=== PATIENT | female | born 1965 | race Caucasian/White ===

== ENCOUNTER → 2020-05-05 13:48 | Outpatient (CLI) | payer BC, SELFPAY ==
--- NOTE | ~2020-05-05 | DEXA_ITS ---
Bone Density Report Name: Pennie Sweet Age: 54 Sex: Female Ethnicity: White Date of : 1965 Indication: postmenopausal; screening for osteoporosis; hysterectomy; Referring Provider: MORALES, NOHEMI Study: Bone densitometry was performed. Exam Date: May 05, 2020 Accession number: [id number] Bone Density: Region BMD T-score Z-score Classification AP Spine (L1-L4) 0.817 -2.1 -1.0 Osteopenia Femoral Neck (Left) 0.691 -1.4 -0.3 Osteopenia Total Hip (Left) 0.840 -0.8 -0.1 Normal Femoral Neck (Right) 0.740 -1.0 0.1 Normal Total Hip (Right) 0.804 -1.1 -0.4 Osteopenia Total Hip Mean 0.822 -1.0 -0.3 Normal World Health Organization criteria for BMD impression classify patients as: Normal (T-score at or above -1.0), Osteopenia (T-score between -1.0 and -2.5), or Osteoporosis (T-score at or below -2.5). 10-year Fracture Risk(1): Major Osteoporotic Fracture 6.0% Hip Fracture 0.4% Reported Risk Factors: [place] (), Neck BMD=0.691, BMI=38.3 (1) FRAX(R) Version 3.08. Fracture probability calculated for an untreated patient. Fracture probability may be lower if the patient has received treatment. Clinical Information Provided by Patient: Has used the following medications: Vitamin D Has the following medical conditions: Hysterectomy Patient maximum height was 62.6 Menopause Age: 28 No regular weight bearing exercise Does not regularly consume dairy products Drinks caffeinated beverages Onset of menses at age 12 Number of children 3 Impression: The patient has low bone mass, based on the Total Spine T-score. The patient has an estimated ten-year risk of hip fracture of 0.4% and an estimated ten-year risk of major fracture of 6%, based on the WHO FRAX algorithm. Discussion: BONE DENSITY IS LOW AT ONE OR MORE SKELETAL SITES. This patient's lowest T-score is low at one or more skeletal sites. It meets the World Health Organization's (WHO) criteria for ?low bone mass? (T-score between -1.0 and -2.5). The patient's 10-year risk of fracture as calculated by FRAX is less than the threshold where pharmacological therapy is recommended by the National Osteoporosis Foundation (NOF). However, all treatment decisions require clinical judgment and consideration of individual patient factors, including patient preferences, comorbidities, previous drug use, risk factors not captured in the FRAX model (e.g., frailty, falls, vitamin D deficiency, increased bone turnover, interval significant decline in bone density) and possible under or overestimation of fracture risk by FRAX. The patient should follow a healthful lifestyle (good nutrition with adequate calcium and vitamin D, and appropriate weight-bearing exercise). Follow-Up: Consider repeating this study in 2 to 3 years to reassess this patient's st
--- NOTE | ~2020-05-05 | MM_ITS ---
EXAMINATION: MM screening lisa BI w leeanna HISTORY: Screening TECHNIQUE: Craniocaudal and mediolateral oblique 3-D tomosynthesis images were obtained and synthetic 2-D images were generated. CAD analysis was submitted and interpreted. COMPARISON: No prior mammogram is available for comparison at this institution. BREAST PARENCHYMAL COMPOSITION: There are scattered areas of fibroglandular density. FINDINGS: There is no evidence of suspicious mass, calcification, or architectural distortion to sugg est malignancy in either breast. There has been no suspicious interval change. IMPRESSION: 1. No mammographic evidence of malignancy. 2. Recommend routine screening mammography in one year. BI-RADS Category 1: Negative Reviewed, dictated and finalized at location B. [employer]
== END ==
PROVIDERS: PCP Nurse Practitioner Adult Health; Visit Provider Nurse Practitioner Adult Health
DX: Z12.31 Encounter for screening mammogram for malignant neoplasm of breast (principal); Z78.0 Asymptomatic menopausal state; M85.88 Other specified disorders of bone density and structure, other site; M85.852 Other specified disorders of bone density and structure, left thigh; M85.851 Other specified disorders of bone density and structure, right thigh
CPT/HCPCS: 77063; 77067; 77080

== ENCOUNTER 2024-09-05 20:08 | Emergency (ER) | payer OTHER, SELFPAY ==
--- NOTE | ~2024-09-05 | XR_ITS ---
XR ribs LT 2V Ordering provider: Tc Yoon MD History: . Fell 2 days ago . Comparison: None. FINDINGS: BONES: No acute left rib fracture or fracture of the visualized osseous structures. LEFT LUNG: No effusions or infiltrates. No pneumothorax. SOFT TISSUES: Normal. IMPRESSION: No left rib fracture. (Note: subtle/nondisplaced rib fractures can be occult on plain films and if t here is continued clinical suspicion for rib fracture, recommend follow up CT chest.) Reviewed, dictated and finalized at location A. IMPRESSION: No left rib fracture. (Note: subtle/nondisplaced rib fractures can be occult o n plain films and if there is continued clinical suspicion for rib fracture, re commend follow up CT chest.)
--- OUTSIDE RECORDS SUMMARY | 2024-09-05 20:10 | XMS_ITS | Referral Summary ---
Author Organization [facility] Address [address] [place] [address] Care Team Providers Care School Based Therapist Name Role Phone Sarai Fernandez NP Primary Care Provider [phone] Encounters Date Type Department Care Team Description 08/28/2024 Telephone [facility] Dermatology [address] [place] [phone] Jovanna Madden 06/20/2024 Results Follow-Up [facility] Diabetes and Endocrinology [address] [place] [phone] Kristin Gonzalez NP T4, free, TSH, Lipid panel, Additional followed-up results: 2 06/19/2024 10:37 AM CDT - 06/19/2024 11:59 PM CDT Hospital Encounter [address] [address] Postablative hypothyroidism; Mixed hyperlipidemia; Primary hypertension Discharge Disposition: Discharge to home or self care 06/19/2024 10:30 AM CDT Lab [facility] Outpatient Lab at [address] [phone] Mixed hyperlipidemia (Primary Dx) 06/19/2024 10:00 AM CDT Office Visit [facility] Diabetes and Endocrinology [address] [place] [phone] Kristin Gonzalez NP Postablative hypothyroidism (Primary Dx); Prediabetes; Vitamin D deficiency; Primary hypertension; Mixed hyperlipidemia from Last 3 Months Allergies Active Allergy Reactions Criticality Noted Date Comments Sulfa (Sulfonamide Antibiotics) Rash,Fever Medium 10/25 Medications lisinopril-hydroCHL OROthiazide (ZESTORETIC) 20-12.5 mg per tablet Take 1 tablet by mouth daily 1 Active rosuvastatin (CRESTOR) 20 mg tablet Take 1 tablet (20 mg total) by mouth daily 90 tablet 2 3 Active ergocalciferol (VITAMIN D) 50,000 unit capsuleIndications: Postablative hypothyroidism Take 1 capsule (50,000 Units total) by mouth every 7 days 12 capsule 3 4 Active levothyroxine (SYNTHROID) 150 mcg tabletIndications:P ostablative hypothyroidism Take 1 tablet (150 mcg total) by mouth daily 90 tablet 3 4 11/16/19 25 Active Active Problems Problem Noted Date Diagnosed Date Mixed hyperlipidemia 02/06/2023 Assessment & Plan (06/19/2024 10:29 AM CDT): Chronic problem. Currently w/o PCP. Not taking her Rosuvastatin 20mg daily. Thinks she may take weekly. Reviewed risk of stroke w/HLD & uncontrolled HTN. Will update lipid today. Does not mychart. Verified phone #/address to contact re: results. Assessment & Plan (02/06/2023 11:06 AM NATURE PHOTOGRAPHER): Chronic problem. Currently w/o PCP. Rosuvastatin 20mg started 08/2022. Has not had levels repeated. Will update lipid today. Does not mychart. Verified phone #/address to contact re: results. Primary hypertension 01/31/2022 Assessment & Plan (06/19/2024 10:31 AM CDT): Chronic problem, uncontrolled. Only takes antihypertensives maybe weekly. Stressed need to take cholesterol/BP meds weekly. Reviewed increased risk of stroke w/uncontrolled HTN/HLD. Will update labs. Does not mychart. Verified phone #/address to contact re: results. Assessment & Plan (08/15/2022 11:00 AM CDT): Chronic, well controlled Continue Zestoretic Check GFR Assessment & Plan (01/31/2022 1:09 PM NATURE PHOTOGRAPHER): Risks of uncontrolled HTN explained Low salt diet, avoiding processed food Take medication compliantly Vitamin D deficiency 05/31/2017 Assessment & Plan (06/19/2024 10:31 AM CDT): Chronic problem. Currently taking ergocalciferol 50,000IU weekly. Has missed a few doses. Will update Vitamin D today. Does not mychart. Verified phone #/address to contact re: results. Assessment & Plan (08/30/2023 4:05 PM CDT): Of the 25 hydroxy vitamin-D level Continue ergocalciferol Assessment & Plan (02/06/2023 11:05 AM NATURE PHOTOGRAPHER): Chronic problem. Currently taking ergocalciferol 50,000IU weekly. Has missed a few doses. Will update Vitamin D today. Does not mychart. Verified phone #/address to contact re: results. Assessment & Plan (08/15/2022 11:00 AM CDT): Check 25 OH vit D Adjust dose of Ergocalciferol accordingly Assessment & Plan (01/31/2022 1:08 PM NATURE PHOTOGRAPHER): Update vit D levels Restart Ergocalciferol, as indicated Assessment & Plan (10/28/2020 2:22 PM CDT): Check 25 OH vit D Adjust dose of Ergocalciferol accordingly Assessment & Plan (11/19/2018 4:04 PM CDT): I encouraged the patient to take her vitamin-D compliantly Assessment & Plan (06/06/2018 9:59 AM CDT): Check vit D DEXA requested Assessment & Plan (05/31/2017 10:38 AM NATURE PHOTOGRAPHER): Check 25 OH vit D Adjust dose of Ergocalciferol accordingly Prediabetes 05/31/2017 Assessment & Plan (06/19/2024 10:30 AM CDT): Chronic problem. A1c 5.5% today. Discussed diet/activity. Still drinking excessive amounts of diet Mountain Dew. Needs to start exercise regimen outside of housework. Reviewed diet: feels that her diet worsens around the holidays. Assessment & Plan (08/30/2023 4:06 PM CDT): Importance of diet and exercise was emphasized Update hemoglobin A1c Assessment & Plan (02/06/2023 11:06 AM NATURE PHOTOGRAPHER): Chronic problem. A1c WNL today. Discussed diet/activity. Needs to start exercise regimen outside of housework. Reviewed diet: feels that her diet worsens around the holidays. Assessment & Plan (08/15/2022 11:00 AM CDT): Diet and exercise Update lipid profile Assessment & Plan (01/31/2022 1:08 PM NATURE PHOTOGRAPHER): hba1c updated Importance of diet and exercise were reemphasized Assessment & Plan (08/02/2021 12:56 PM CDT): Patient advised on working on diet and exercise Low-calorie diet Check HbA1c Assessment & Plan (10/28/2020 2:22 PM CDT): Diet and exercise Check hba1c Check lipid profile Assessment & Plan (06/06/2018 9:59 AM CDT): Diet and exercise discussed Check hba1c Assessment & Plan (05/31/2017 10:39 AM NATURE PHOTOGRAPHER): Check hba1c Diet and exercise Consider starting metformin Postablative hypothyroidism 05/26/2013 Overview (06/28/2016): POSTABLAT HYPOTHYR NEC Assessment & Plan (06/19/2024 10:29 AM CDT): Chronic problem. Clinically euthyroid on current Levothyroxine 150mcg Sunday-Sunday; none on Sunday. Aware to take 1st thing in morning, 30-60 minutes before food/drink/other medications. Will update labs. Does not mychart. Verified phone #/address to contact re: results. Assessment & Plan (08/30/2023 4:05 PM CDT): Chronic, with fluctuating TSH levels Update TFTs Will adjust dose of levothyroxine, as indicated Assessment & Plan (02/06/2023 11:04 AM NATURE PHOTOGRAPHER): Chronic problem. Has not had labs repeated since decreasing from 175mcg to 150mcg 08/2022. TSH/T4 ordered. Does not mychart. Verified phone #/address to contact re: results. Reviewed medication scheduling: aware to take 1st thing in morning, 30-60 minutes before food/drink/other medications. Assessment & Plan (08/15/2022 10:59 AM CDT): Update TFT's Importance of taking the Levothyroxine on an empty stomach was emphasized Assessment & Plan (01/31/2022 1:04 PM NATURE PHOTOGRAPHER): Thyroid function tests, including TSH and free T4 were requested Will adjust dose of Levothyroxine accordingly . If there is a need to make changes, will recheck levels in 2-3 months. Instructions to patient on taking medication properly : in the morning, on an empty stomach , 1 h part from food and/or other meds. Assessment & Plan (08/02/2021 12:55 PM CDT): Thyroid function tests, including TSH and free T4 were requested Will adjust dose of Levothyroxine accordingly . If there is a need to make changes, will recheck levels in 2-3 months. Instructions to patient on taking medication properly : in the morning, on an empty stomach , 1 h part from food and/or other meds. Assessment & Plan (10/28/2020 2:23 PM CDT): Thyroid function tests, including TSH and free T4 were requested Will adjust dose of Levothyroxine accordingly . If there is a need to make changes, will recheck levels in 2-3 months. Instructions to patient on taking medication properly : in the morning, on an empty stomach , 1 h part from food and/or other meds. Samples provided Send 90 d rx ES Assessment & Plan (06/05/2019 2:41 PM CDT): Check TFT's Adjust dose of Levothyroxine, if indicated Assessment & Plan (11/19/2018 4:04 PM CDT): Will check TSH and free T4 Will adjust dose of Levothyroxine accordingly . If there is a need to make changes, will recheck levels in 2-3 months. Instructions to patient on taking medication properly : in the morning, on an empty stomach , 1 h part from food and/or other meds. If any doses are missed, can take 2-3 tab together ,to make up for the missed dose; make sure at the end to the week, 7 tabs have been taken. Assessment & Plan (06/06/2018 9:59 AM CDT): Do labs today Adjust levothyroxine to 250 mcg daily F/u in 4 m Assessment & Plan (05/31/2017 10:38 AM NATURE PHOTOGRAPHER): Check TSH, free T4 Adjust dose of Levothyroxine accordingly . Instructions to patient on taking medication properly Consider taking the med 2 x wk ( 7 tabs one day and 7 tabs another day ) Will call with recommendations Skin benign neoplasm 08/07/2012 Keloid scar 08/07/2012 Social History Tobacco Use Types Packs/Day Years Used Date Smoking Tobacco: Never Smokeless Tobacco: Never Tobacco Cessation:Counseling Given: Not Answered Alcohol Use Standard Drinks/Week Comments No 0 (1 standard drink = 0.6 oz pur e alcohol) PHQ-2 Answer Date Recorded PHQ-2 Total Score (If total score is 3 or more points, staff should administer the PHQ-9) 0 08/15/2022 Comments Unknown Sex and Gender Information Value Date Recorded Sex Assigned at Not on file Legal Sex Female 12:32 AM NATURE PHOTOGRAPHER Gender Identity Not on file Sexual Orientation Not on file Last Filed Vital Signs Vital Sign Reading Time Taken Comments Blood Pressure 164/92 06/19/2024 9:56 AM CDT Pulse 70 06/19/2024 9:56 AM CDT Temperature - - Respiratory Rate 18 06/19/2024 9:56 AM CDT Oxygen Saturation - - Inhaled Oxygen Concentration - - Weight 91.2 kg (201 lb) 06/19/2024 9:56 AM CDT Height 157.5 cm (5' 2.01) 06/19/2024 9:56 AM CD T Body Mass Index 36.75 06/19/2024 9:56 AM CDT Plan of Treatment Not on file Procedures Procedure Name Priority Date/Time Associated Diagnosis Comments EGFR Routine 06/19/2024 10:37 AM CDT Primary hypertension COMPREHENSIVE METABOLIC PANEL Routine 06/19/2024 10:37 AM CDT Primary hypertension LIPID PANEL Routine 06/19/2024 10:37 AM CDT Mixed hyperlipidemia TSH Routine 06/19/2024 10:37 AM CDT Postablative hypothyroidism T4, FREE Routine 06/19/2024 10:37 AM CDT Postablative hypothyroidism POCT GLUCOSE Routine 06/19/2024 9:59 AM CDT Prediabetes POCT HEMOGLOBIN A1C Routine 06/19/2024 9 :59 AM CDT Prediabetes from Last 3 Months Results * eGFR (06/19/2024 10:37 AM CDT) eGFR 77 >=60 mL/min/1. 73 m2 Comment: Interpretive Data Reference Interval Normal >/= 90 mL/min/1.73m2 Mildly decreased* 60 - 89 mL/min/1.73m2 Mildly to moderately decreased 45 - 59 mL/min/1.73m2 Moderately to severely decreased 30 - 44 mL/min/1.73m2 Severely decreased 15 - 29 mL/min/1.73m2 Kidney Failure < 15 mL/min/1.73m2 *Relative to young adult level Estimated glomerular filtration rate is determined by the 2020 CKD-EPI equation recommended by the National Kidney Foundation (A Unifying Approach to GFR Estimation: Recommendations of the NKF-ASK Task Force on Reassessing the Inclusion of Race in Diagnosing Kidney Disease, JASN 2020). The CKD-EPI equation should not be used for patients with unstable renal function and has not been validated in children and those over 70. Current interpretive data was last reviewed 2021. Blood 06/19/2024 10:3 7 AM CDT 06/19/2024 8:56 PM CDT us Kristin Gonzalez ENGINE ASSEMBLY SUPERVISOR LAB BLOOD ORDERABLES Lucinda l Result Performing Organization Address City/[facility] Co de Phone Number SARAHSHOAIB NAS[facility] [address] Department [place] [address] * TSH (06/19/2024 10:37 AM CDT) Thyroid Stimulating Hormone 1.48 0.30 - 4.20 mcIUnit/mL Blood 06/19/2024 10:3 7 AM CDT 06/19/2024 8:54 PM CDT us Kristin Gonzalez NP LAB BLOOD ORDERABLES [place] [address] [address] [place] [address] * T4, free (06/19/2024 10:37 AM CDT) Free T4 1.54 0.90 - 1.70 ng/dL Blood 06/19/2024 10:3 7 AM CDT 06/19/2024 8:54 PM CDT us Kristin R. Schleeper ENGINE ASSEMBLY SUPERVISOR LAB BLOOD ORDERABLES Lucinda khan Result [facility] [address] [facility] Department [place] [address] * Lipid panel (06/19/2024 10:37 AM CDT) Cholesterol 171 30 - 199 mg/dL Comment: Interpretive Data Ages < or = 19 years Acceptable: <170 mg/dL Borderline high: 170-199 mg/dL High: >or= 200 mg/dL Ages > or = 20 years Desirable: <200 mg/dL Borderline high: 200-239 mg/dL High: >or= 240 mg/dL Literature References: 1. Expert Panel on Integrated Guidelines for Cardiovascular Health and Risk Reduction in Children and Adolescents. Pediatrics 2011;128:S213 2. NCEP Expert Panel. Circulation 2004;110:227 Current Interpretive Data was last revised on 2017. Triglycerides 63 <=149 mg/dL [facility] Comment: Interpretive Data Ages < or = 9 years Acceptable: <75 mg/dL Borderline high: 75-99 mg/dL High: >or= 100 mg/dL Ages 10 to 20 years Acceptable: <90 mg/dL Borderline high: 90-129 mg/dL High: >or= 130 mg/dL Ages > or = 20 years Desirable: <150 mg/dL Borderline high: 150-199 mg/dL High: 200-499 mg/dL Very high: >or= 499 mg/dL Literature References: 1. Expert Panel on Integrated Guidelines for Cardiovascular Health and Risk Reduction in Children and Adolescents. Pediatrics 2011;128:S213 2. NCEP Expert Panel. Circulation 2004;110:227 Current Interpretive Data was last revised on 2017. HDL 54 >=40 mg/dL [facility] Comment: Interpretive Data Ages < or = 19 years Acceptable: >45 mg/dL Borderline low: 40-45 mg/dL Low: <40 mg/dL Ages > or = 20 years Desirable: >or= 60 mg/dL Low: <40 mg/dL Literature References: 1. Expert Panel on Integrated Guidelines for Cardiovascular Health and Risk Reduction in Children and Adolescents. Pediatrics 2011;128:S213 2. NCEP Expert Panel. Circulation 2004;110:227 Current Interpretive Data was last revised on 2017. LDL, calculated 105 <=129 mg/dL [facility] Comment: Interpretive Data Ages < or = 19 years Acceptable: <110 mg/dL Borderline high: 110-129 mg/dL High: >or= 130 mg/dL Ages > or = 20 years Optimal: <100 mg/dL Near optimal: 100-129 mg/dL Borderline high: 130-159 mg/dL High: >160 mg/dL Calculated using the Marco LDL-C estimating equation. This equation was implemented on 2023. Prior to this date LDL-C was estimated using the Friedewald equation. Literature References: 1. Expert Panel on Integrated Guidelines for Cardiovascular Health and Risk Reduction in Children and Adolescents. Pediatrics 2011;128:S213 2. NCEP Expert Panel. Circulation 2004;110:227 3. Marco Shepherd et al. ED Cardiol. 2020 July 24;5(5):540-548. doi: 10.1001/[email or web address].2020.0013 Current Interpretive Data was last revised on 2023. Non-HDL Cholesterol 117 mg/dL [facility] Comment: Interpretive Data Ages < or = 19 years Acceptable: <120 mg/dL Borderline high: 120-144 mg/dL High: >145 mg/dL Ages > or = 20 years When triglycerides are >200 mg/dL, Non-HDL cholesterol is a secondary target of therapy with treatment goals that are 30 mg/dL greater than the LDL cholesterol target. Literature References: 1. Expert Panel on Integrated Guidelines for Cardiovascular Health and Risk Reduction in Children and Adolescents. Pediatrics 2011;128:S213 2. NCEP Expert Panel. Circulation 2004;110:227 Current Interpretive Data was last revised on 2017. Chol/HDL ratio 3 [facility] Blood 06/19/2024 10:3 7 AM CDT 06/19/2024 8:54 PM CDT us Kristin Gonzalez NP LAB BLOOD ORDERABLES Lucinda khan Result [facility] [address] [address] Department [place] [address] * Comprehensive metabolic panel (06/19/2024 10:37 AM CDT) Sodium 142 135 - 145 mmol/L Potassium, pl 4.1 3.3 - 4.9 mmol/L [facility] Chloride 105 97 - 110 mmol/L [facility] CO2 25 22 - 32 mmol/L [facility] Anion gap 12 2 - 15 mmol/L [facility] BUN 15 6 - 25 mg/dL [facility] Creatinine 0.87 0.60 - 1.10 mg/dL [facility] Glucose 80 70 - 199 mg/dL [facility] Comment: Interpretive Data Fasting glucose >/= 126 mg/dl is diagnostic for diabetes. Fasting is defined as no caloric intake for at least 8 hours. Fasting glucose between 100 mg/dl to 125 mg/dl is diagnostic of prediabetes. In a patient with classic symptoms of hyperglycemia or hyperglycemic crisis, a random glucose >/= 200 mg/dl is diagnostic for diabetes. In the absence of unequivocal hyperglycemia, results should be confirmed by repeat testing. The classification and Diagnosis of Diabetes Diabetes Care 2021; 46: S19-S40. Current interpretive data was last revised 2022. Calcium 9.4 8.5 - 10.3 mg/dL [facility] Bilirubin, total 0.4 0.1 - 1.2 mg/dL [facility] Protein, pl 7.4 6.5 - 8.5 g/dL [facility] Albumin 4.3 3.5 - 5.0 g/dL [facility] Alk phos 102 40 - 130 Units/L [facility] ALT 22 7 - 45 Units/L [facility] AST 22 10 - 45 Units/L [facility] Blood 06/19/2024 10:3 7 AM CDT 06/19/2024 8:54 PM CDT us Kristin Gonzalez NP LAB BLOOD ORDERABLES Lucinda l Result [facility] [address] [address] Department [place] [address] * POCT hemoglobin A1c (06/19/2024 9:59 AM CDT) Pathologist [facility] Hemoglobin A1C, POC 5.5 4.0 - 5.6 % Blood 06/19/2024 9:59 AM CDT us Kristin Gonzalez ENGINE ASSEMBLY SUPERVISOR POINT OF CARE TEST ORDERA BLES Final Result * POCT glucose (06/19/2024 9:59 AM CDT) Glucose Blood, POC 91 mg/dL Blood 06/19/2024 9:59 AM CDT us Kristinherlinda Gonzalez ENGINE ASSEMBLY SUPERVISOR POINT OF CARE TEST ORDERA BLES Final Result from Last 3 Months Insurance [facility] [employer] [facility] [place] [facility] Care Teams School Based Therapist Relationship Specialty Start Date End Date Sarai Fernandze NP PCP - General Nurse Practitioner 11/19/18
--- OUTSIDE RECORDS SUMMARY | 2024-09-05 20:10 | XMS_ITS | Clinical Summary ---
Author Organization [facility] Address [address] [place] [address] Phone Care Team Providers Care Market Development Executive Name Role Phone Unavailable Primary Care Provider Unavailabl e Social History Tobacco Use Types Packs/Day Years Used Date Smoking Tobacco: Never Assessed Comments Unknown Sex and Gender Information Value Date Recorded Sex Assigned at Not on file Legal Sex Unknown 05/15/2019 12:14 PM RESTAURANT TEAM MEMBER Gender Identity Not on file Sexual Orientation Not on file Plan of Treatment Health Maintenance Due Date Last Done Comments DTAP/TDAP/TD VACCINES (1 - Tdap) 08/28/1983 HPV/Cotest (21-29) 1985 CERVICAL CANCER SCREENING 1994 HPV/Cotest (30-65) 1994 PAP SMEAR 1994 BREAST CANCER SCREENING 2004 COLORECTAL SCREENING 2009 Colorectal Cancer Screening 2009 FIT-DNA Q 3 years 2009 FIT/FOBT Q 1 year 2009 Flex Sig/CT Colonography Q 5 years 2009 ZOSTER VACCINE (1 of 2) 2014 INFLUENZA VACCINE (#1) 2023 RSV VACCINE (60+ or ) (1 - 1-dose 75+ series) 08/28/2039 HEPATITIS B VACCINES Aged Out No long er eligible based on patient's age to complete this topic
--- OUTSIDE RECORDS SUMMARY | 2024-09-05 20:10 | XMS_ITS | Clinical Summary ---
Author Organization [facility] 8 [facility] Address [address] [place] [address] Care Team Providers Care Life Enrichment Manager Name Role Phone Sarai Fernandez NP Primary Care Provider [phone] Allergies Active Allergy Reactions Criticality Noted Date [...] results. Assessment & Plan (02/06/2023 11:06 AM WAREHOUSE RECEIVING CLERK): Chronic problem. Currently w/o PCP. Rosuvastatin 20mg [...] GFR Assessment & Plan (01/31/2022 1:09 PM WAREHOUSE RECEIVING CLERK): Risks of uncontrolled HTN explained Low salt [...] ergocalciferol Assessment & Plan (02/06/2023 11:05 AM WAREHOUSE RECEIVING CLERK): Chronic problem. Currently taking ergocalciferol 50,000IU weekly. Has missed a few doses. Will update Vitamin D today. Does not mychart. Verified phone #/address to contact re: results. Assessment & Plan (08/15/2022 11:00 AM CDT): Check 25 OH vit D Adjust dose of Ergocalciferol accordingly Assessment & Plan (01/31/2022 1:08 PM WAREHOUSE RECEIVING CLERK): Update vit D levels Restart Ergocalciferol, as indicated Assessment & Plan (10/28/2020 2:22 PM CDT): Check 25 OH vit D Adjust dose of Ergocalciferol accordingly Assessment & Plan (11/19/2018 4:04 PM CDT): I encouraged the patient to take her vitamin-D compliantly Assessment & Plan (06/06/2018 9:59 AM CDT): Check vit D DEXA requested Assessment & Plan (05/31/2017 10:38 AM WAREHOUSE RECEIVING CLERK): Check 25 OH vit D Adjust dose [...] A1c Assessment & Plan (02/06/2023 11:06 AM WAREHOUSE RECEIVING CLERK): Chronic problem. A1c WNL today. Discussed diet/activity. Needs to start exercise regimen outside of housework. Reviewed diet: feels that her diet worsens around the holidays. Assessment & Plan (08/15/2022 11:00 AM CDT): Diet and exercise Update lipid profile Assessment & Plan (01/31/2022 1:08 PM WAREHOUSE RECEIVING CLERK): hba1c updated Importance of diet and exercise were reemphasized Assessment & Plan (08/02/2021 12:56 PM CDT): Patient advised on working on diet and exercise Low-calorie diet Check HbA1c Assessment & Plan (10/28/2020 2:22 PM CDT): Diet and exercise Check hba1c Check lipid profile Assessment & Plan (06/06/2018 9:59 AM CDT): Diet and exercise discussed Check hba1c Assessment & Plan (05/31/2017 10:39 AM WAREHOUSE RECEIVING CLERK): Check hba1c Diet and exercise Consider starting [...] indicated Assessment & Plan (02/06/2023 11:04 AM WAREHOUSE RECEIVING CLERK): Chronic problem. Has not had labs repeated [...] emphasized Assessment & Plan (01/31/2022 1:04 PM WAREHOUSE RECEIVING CLERK): Thyroid function tests, including TSH and free [...] m Assessment & Plan (05/31/2017 10:38 AM WAREHOUSE RECEIVING CLERK): Check TSH, free T4 Adjust dose of Levothyroxine accordingly . 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 Diabetes and Endocrinology [address] [place] [phone] Kristin Gonzalez NP T4, free, TSH, Lipid panel, Additional followed-up results: 2 06/19/2024 10:37 AM CDT - 06/19/2024 11:59 PM CDT Hospital Encounter [address] [address] Postablative hypothyroidism; Mixed hyperlipidemia; Primary hypertension Discharge Disposition: Discharge to home or self care 06/19/2024 10:30 AM CDT Lab [facility] Outpatient Lab at [address] [phone] Mixed hyperlipidemia (Primary Dx) 06/19/2024 10:00 AM CDT Office Visit [facility] Diabetes and Endocrinology [address] [place] [phone] Kristin Gonzalez NP Postablative hypothyroidism (Primary Dx); Prediabetes; Vitamin D deficiency; Primary hypertension; Mixed hyperlipidemia from Last 3 Months Surgical History Surgery Date Site/Laterality Comments HYSTERECTOMY Hysterectomy CHOLECYSTECTOMY Cholecystectomy Medical History Medical History Date Comments Hx Other Medical NEGRETE 2004 Disorder of thyroid Thyroid dise ase Family History Medical History Relation Name Comments Diabetes type II Father Diabetes -T ype 2; Relation Name Status Comments Father Social History Tobacco Use Types Packs/Day Years [...] on file Legal Sex Female 12:32 AM WAREHOUSE RECEIVING CLERK Gender Identity Not on file Sexual Orientation Not on file Obstetrics History Last Filed Vital Signs Vital Sign Reading [...] 06/19/2024 9:56 AM CDT Plan of Treatment Health Maintenance Due Date Last Done Comments Breast Cancer Screening-Mammogram 1964 Colon Cancer Screening-Colonoscopy 1964 Hepatitis C Screening 1964 Hepatitis B Screening 1982 Regular Well Visit/Exam 18-64 1982 Zoster Vaccine (1 of 2) 2014 Depression Screening 08/16/2023 08/15/2022, 01/31/2022, 06/05/2019, Additional history exists Influenza Vaccine (Season Ended) 2024 DTaP/Tdap/Td Vaccine (3 - Td or Tdap) 07/02/2025 07/03/2015, 05/25/2015 Pneumococcal vaccine <65 Aged Out No longer eligible based on patient's age to complete this topic Procedures Procedure Name Priority Date/Time Associated Diagnosis [...] 06/19/2024 8:56 PM CDT us Kristin Gonzalez NP LAB BLOOD ORDERABLES Lucinda khan Result [facility] [address] Department [place] [address] * TSH (06/19/2024 10:37 AM CDT) Thyroid Stimulating Hormone 1.48 0.30 - 4.20 mcIUnit/mL Blood 06/19/2024 10:3 7 AM CDT 06/19/2024 8:54 PM CDT Kristin Gonzalez SUPERVISOR MOTORCYCLE REPAIR SHOP LAB BLOOD ORDERABLES Lucinda l Result Performing Organization Address [facility] Co de Phone Number SARAHSHOAIB [address] [address] [facility] [place] [address] * T4, free (06/19/2024 10:37 AM CDT) Free T4 1.54 0.90 - 1.70 ng/dL Blood 06/19/2024 10:3 7 AM CDT 06/19/2024 8:54 PM CDT Kristin Gonzalez SUPERVISOR MOTORCYCLE REPAIR SHOP LAB BLOOD ORDERABLES Lucinda l Result Performing Organization Address [facility] Co de Phone Number VALERIE [phone] [address] [facility] [place] [address] * Lipid panel (06/19/2024 10:37 AM CDT) [...] NCEP Expert Panel. Circulation 2004;110:227 3. Marco Covarrubias. ED Cardiol. 2020 July 24;5(5):540-548. doi: 10.1001/jamacardio.2020.0013 [...] last revised on 2017. Chol/HDL ratio 3 CERNER CH Blood 06/19/2024 10:3 7 AM CDT 06/19/2024 8:54 PM CDT us Kristin Gonzalez NP LAB BLOOD ORDERABLES Lucinda khan Result [facility] [address] [address] Department [place] [address] * Comprehensive metabolic panel (06/19/2024 10:37 AM [...] classification and Diagnosis of Diabetes Diabetes Care 2022; 46: S19-S40. Current interpretive data was last [...] 06/19/2024 8:54 PM CDT us Kristin Gonzalez SUPERVISOR MOTORCYCLE REPAIR SHOP LAB BLOOD ORDERABLES Lucinda l Result [facility] [address] [address] Department [place] [address] * POCT hemoglobin A1c (06/19/2024 9:59 AM CDT) Hemoglobin A1C, POC 5.5 4.0 - 5.6 % Blood 06/19/2024 9:59 AM CDT us Kristin Gonzalez NP POINT OF CARE TEST ORDERA BLES Final Result * POCT glucose (06/19/2024 9:59 AM CDT) Glucose Blood, POC 91 mg/dL Blood 06/19/2024 9:59 AM CDT Kristin Gonzalez NP POINT OF CARE TEST ORDERA BLES Final Result from Last 3 Months Insurance [facility] Care Teams Life Enrichment Manager Relationship Specialty Start Date End Date Sarai Fernandez NP PCP - General Nurse Practitioner 11/19/18
[2024-09-05 20:20] VITALS: BP 171/88; PULSE 97; RESP 18; TEMP 36.9; O2SAT 96
--- NOTE | 2024-09-05 20:31 | PC.NURSE ---
Patient taken to Xray via w/c at this time.
[2024-09-05 20:45] VITALS: RESP 18; O2SAT 96
--- OUTSIDE RECORDS SUMMARY | 2024-09-05 20:51 | XMS_ITS | Clinical Summary ---
Author Organization [facility] Address [address] [place] [address] Phone Care Team Providers Care Principal Process Engineer Name Role Phone Unavailable Primary Care Provider Unavailabl e Social History Tobacco Use Types Packs/Day Years Used Date Smoking Tobacco: Never Assessed Comments Unknown Sex and Gender Information Value Date Recorded Sex Assigned at Not on file Legal Sex Unknown 05/15/2019 12:14 PM CONVEYOR WORKER Gender Identity Not on file Sexual Orientation [...]
--- OUTSIDE RECORDS SUMMARY | 2024-09-05 20:52 | XMS_ITS | Clinical Summary ---
Author Organization [facility] 8 [facility] Address [address] [place] [address] Care Team Providers Care Boilermaker Fitter Name Role Phone Sarai Fernandez NP Primary Care Provider [phone] Allergies Active Allergy Reactions Criticality Noted Date [...] results. Assessment & Plan (02/06/2023 11:06 AM FOOD PRODUCTS TESTER): Chronic problem. Currently w/o PCP. Rosuvastatin 20mg [...] GFR Assessment & Plan (01/31/2022 1:09 PM FOOD PRODUCTS TESTER): Risks of uncontrolled HTN explained Low salt [...] ergocalciferol Assessment & Plan (02/06/2023 11:05 AM FOOD PRODUCTS TESTER): Chronic problem. Currently taking ergocalciferol 50,000IU weekly. Has missed a few doses. Will update Vitamin D today. Does not mychart. Verified phone #/address to contact re: results. Assessment & Plan (08/15/2022 11:00 AM CDT): Check 25 OH vit D Adjust dose of Ergocalciferol accordingly Assessment & Plan (01/31/2022 1:08 PM FOOD PRODUCTS TESTER): Update vit D levels Restart Ergocalciferol, as indicated Assessment & Plan (10/28/2020 2:22 PM CDT): Check 25 OH vit D Adjust dose of Ergocalciferol accordingly Assessment & Plan (11/19/2018 4:04 PM CDT): I encouraged the patient to take her vitamin-D compliantly Assessment & Plan (06/06/2018 9:59 AM CDT): Check vit D DEXA requested Assessment & Plan (05/31/2017 10:38 AM FOOD PRODUCTS TESTER): Check 25 OH vit D Adjust dose [...] A1c Assessment & Plan (02/06/2023 11:06 AM FOOD PRODUCTS TESTER): Chronic problem. A1c WNL today. Discussed diet/activity. Needs to start exercise regimen outside of housework. Reviewed diet: feels that her diet worsens around the holidays. Assessment & Plan (08/15/2022 11:00 AM CDT): Diet and exercise Update lipid profile Assessment & Plan (01/31/2022 1:08 PM FOOD PRODUCTS TESTER): hba1c updated Importance of diet and exercise were reemphasized Assessment & Plan (08/02/2021 12:56 PM CDT): Patient advised on working on diet and exercise Low-calorie diet Check HbA1c Assessment & Plan (10/28/2020 2:22 PM CDT): Diet and exercise Check hba1c Check lipid profile Assessment & Plan (06/06/2018 9:59 AM CDT): Diet and exercise discussed Check hba1c Assessment & Plan (05/31/2017 10:39 AM FOOD PRODUCTS TESTER): Check hba1c Diet and exercise Consider starting [...] indicated Assessment & Plan (02/06/2023 11:04 AM FOOD PRODUCTS TESTER): Chronic problem. Has not had labs repeated [...] emphasized Assessment & Plan (01/31/2022 1:04 PM FOOD PRODUCTS TESTER): Thyroid function tests, including TSH and free [...] m Assessment & Plan (05/31/2017 10:38 AM FOOD PRODUCTS TESTER): Check TSH, free T4 Adjust dose of Levothyroxine accordingly . Instructions to patient on taking medication properly Consider taking the med 2 x wk ( 7 tabs one day and 7 tabs another day ) Will call with recommendations Skin benign neoplasm 08/07/2012 Keloid scar 08/07/2012 Encounters Date Type Department Care Team Description 08/28/2024 Telephone [facility] Dermatology [address] [place] [address] Jovanna Madden 06/20/2024 Results Follow-Up [facility] Diabetes and Endocrinology [address] [place] [phone] Kristin Gonzalez NP T4, free, TSH, Lipid panel, Additional followed-up results: 2 06/19/2024 10:37 AM CDT - 06/19/2024 11:59 PM CDT Hospital Encounter [address] [address] Postablative hypothyroidism; Mixed hyperlipidemia; Primary hypertension Discharge Disposition: Discharge to home or self care 06/19/2024 10:[address] [facility] Outpatient Lab at [address] [phone] Mixed hyperlipidemia (Primary Dx) 06/19/2024 10:00 AM CDT Office Visit [facility] Diabetes and Endocrinology [address] [place] [phone] Kristin Gonzalez NP Postablative hypothyroidism (Primary Dx); [...] on file Legal Sex Female 12:32 AM FOOD PRODUCTS TESTER Gender Identity Not on file Sexual Orientation [...] BLOOD ORDERABLES Lucinda khan Result [facility] [address] [address] Department [place] [address] * TSH (06/19/2024 10:37 AM CDT) Thyroid Stimulating Hormone 1.48 0.30 - 4.20 mcIUnit/mL Blood 06/19/2024 10:3 7 AM CDT 06/19/2024 8:54 PM CDT Kristin Gonzalez YOUTH PASTOR LAB BLOOD ORDERABLES Lucinda l Result Performing Organization Address [facility] Co de Phone Number SARAHSHOAIB [address] [address] [facility] [place] [address] * T4, free (06/19/2024 10:37 AM CDT) Free T4 1.54 0.90 - 1.70 ng/dL Blood 06/19/2024 10:3 7 AM CDT 06/19/2024 8:54 PM CDT Kristin Gonzalez YOUTH PASTOR LAB BLOOD ORDERABLES Lucinda l Result Performing Organization Address [facility] Co de Phone Number VALERIE [address] [address] [facility] [place] [address] * Lipid panel (06/19/2024 10:37 AM CDT) [...] NP LAB BLOOD ORDERABLES Lucinda khan [facility] [address] [address] Department [place] [address] * Comprehensive metabolic panel (06/19/2024 10:37 AM [...] 06/19/2024 8:54 PM CDT us Kristin Gonzalez YOUTH PASTOR LAB BLOOD ORDERABLES Lucinda l Result [facility] [address] [address] Department [place] [address] * POCT hemoglobin A1c (06/19/2024 9:59 AM [...] Final Result from Last [address] [facility] Care Teams Boilermaker Fitter Relationship Specialty Start Date End Date Saari Fernandez NP PCP - General Nurse Practitioner 11/19/18
--- OUTSIDE RECORDS SUMMARY | 2024-09-05 20:52 | XMS_ITS | Referral Summary ---
Author Organization [facility] 8 [facility] Address [address] [place] [address] Care Team Providers Care Machine Ii Coremaker Name Role Phone Sarai Fernandez NP Primary Care Provider [phone] Encounters Date Type Department Care Team Description 08/28/2024 Telephone [facility] Dermatology [address] [place] [phone] Jovanna Madden 06/20/2024 Results Follow-Up [facility] Diabetes and Endocrinology [address] [place] [phone] Kristin Gonzalez NP T4, free, TSH, Lipid panel, Additional followed-up results: 2 06/19/2024 10:37 AM CDT - 06/19/2024 11:59 PM CDT Hospital Encounter [address] [address] Postablative hypothyroidism; Mixed hyperlipidemia; Primary hypertension Discharge Disposition: Discharge to home or self care 06/19/2024 10:30 AM CDT Lab [facility] Outpatient Lab at [address] [phone] Mixed hyperlipidemia (Primary Dx) 06/19/2024 10:00 AM CDT Office Visit [facility] Group Diabetes and Endocrinology [address] [place] [phone] Kristin Gonzalez NP Postablative hypothyroidism (Primary [...] results. Assessment & Plan (02/06/2023 11:06 AM COMMUNICATIONS TECHNOLOGIST): Chronic problem. Currently w/o PCP. Rosuvastatin 20mg [...] GFR Assessment & Plan (01/31/2022 1:09 PM COMMUNICATIONS TECHNOLOGIST): Risks of uncontrolled HTN explained Low salt [...] ergocalciferol Assessment & Plan (02/06/2023 11:05 AM COMMUNICATIONS TECHNOLOGIST): Chronic problem. Currently taking ergocalciferol 50,000IU weekly. Has missed a few doses. Will update Vitamin D today. Does not mychart. Verified phone #/address to contact re: results. Assessment & Plan (08/15/2022 11:00 AM CDT): Check 25 OH vit D Adjust dose of Ergocalciferol accordingly Assessment & Plan (01/31/2022 1:08 PM COMMUNICATIONS TECHNOLOGIST): Update vit D levels Restart Ergocalciferol, as indicated Assessment & Plan (10/28/2020 2:22 PM CDT): Check 25 OH vit D Adjust dose of Ergocalciferol accordingly Assessment & Plan (11/19/2018 4:04 PM CDT): I encouraged the patient to take her vitamin-D compliantly Assessment & Plan (06/06/2018 9:59 AM CDT): Check vit D DEXA requested Assessment & Plan (05/31/2017 10:38 AM COMMUNICATIONS TECHNOLOGIST): Check 25 OH vit D Adjust dose [...] A1c Assessment & Plan (02/06/2023 11:06 AM COMMUNICATIONS TECHNOLOGIST): Chronic problem. A1c WNL today. Discussed diet/activity. Needs to start exercise regimen outside of housework. Reviewed diet: feels that her diet worsens around the holidays. Assessment & Plan (08/15/2022 11:00 AM CDT): Diet and exercise Update lipid profile Assessment & Plan (01/31/2022 1:08 PM COMMUNICATIONS TECHNOLOGIST): hba1c updated Importance of diet and exercise were reemphasized Assessment & Plan (08/02/2021 12:56 PM CDT): Patient advised on working on diet and exercise Low-calorie diet Check HbA1c Assessment & Plan (10/28/2020 2:22 PM CDT): Diet and exercise Check hba1c Check lipid profile Assessment & Plan (06/06/2018 9:59 AM CDT): Diet and exercise discussed Check hba1c Assessment & Plan (05/31/2017 10:39 AM COMMUNICATIONS TECHNOLOGIST): Check hba1c Diet and exercise Consider starting [...] indicated Assessment & Plan (02/06/2023 11:04 AM COMMUNICATIONS TECHNOLOGIST): Chronic problem. Has not had labs repeated [...] emphasized Assessment & Plan (01/31/2022 1:04 PM COMMUNICATIONS TECHNOLOGIST): Thyroid function tests, including TSH and free [...] m Assessment & Plan (05/31/2017 10:38 AM COMMUNICATIONS TECHNOLOGIST): Check TSH, free T4 Adjust dose of [...] on file Legal Sex Female 12:32 AM COMMUNICATIONS TECHNOLOGIST Gender Identity Not on file Sexual Orientation [...] 06/19/2024 8:56 PM CDT us Kristin Gonzalez PROJECT ARCHIVIST LAB BLOOD ORDERABLES Lucinda l Result Performing Organization Address City/[facility] Co de Phone Number SARAHSHOAIB NAS[facility] [address] [address] Department [place] [address] * TSH (06/19/2024 10:37 AM CDT) Thyroid Stimulating Hormone 1.48 0.30 - 4.20 mcIUnit/mL Blood 06/19/2024 10:3 7 AM CDT 06/19/2024 8:54 PM CDT us Kristin Gonzalez NP LAB BLOOD [place] [address] [address] [place] [address] * T4, free (06/19/2024 10:37 AM CDT) Free T4 1.54 0.90 - 1.70 ng/dL Blood 06/19/2024 10:3 7 AM CDT 06/19/2024 8:54 PM CDT us Kristin R. Schleeper PROJECT ARCHIVIST LAB BLOOD ORDERABLES Lucinda khan Result [facility]IE [address] [facility] [place] [address] * Lipid panel (06/19/2024 10:37 AM CDT) [...] BLOOD ORDERABLES Lucinda khan Result [facility] [address] [address] [place] [address] * Comprehensive metabolic panel (06/19/2024 10:37 AM [...] NP LAB BLOOD ORDERABLES Lucinda l Result [facility] [address] [address] [place] [address] * POCT hemoglobin A1c (06/19/2024 9:59 AM CDT) Pathologist [facility] Hemoglobin A1C, POC 5.5 4.0 - 5.6 % Blood 06/19/2024 9:59 AM CDT us Kristin Gonzalez PROJECT ARCHIVIST POINT OF CARE TEST ORDERA BLES Final Result * POCT glucose (06/19/2024 9:59 AM CDT) Glucose Blood, POC 91 mg/dL Blood 06/19/2024 9:59 AM CDT us Kristinherlinda Gonzalez PROJECT ARCHIVIST POINT OF CARE TEST ORDERA BLES Final Result from Last 3 Months Insurance [facility] [employer] [facility] Care Teams Machine Ii Coremaker Relationship Specialty Start Date End Date Sarai Fernandez NP PCP - General Nurse Practitioner 11/19/18
--- NOTE | 2024-09-05 20:56 | ED.GENADULT ---
HPI - General Adult General Chief complaint: Unspecified Stated complaint: rib pain Time Seen by Provider: 09/05/24 20:27 History of Present Illness HPI narrative: 59-year-old female presenting to the emergency department after falling and hitting her left ribs against a concrete floor 2 days ago. Patient states that she tripped and fell forward and landed onto her ribs. Did not lose consciousness or report any difficulty in breathing but knows that the pain was bothersome so she came to the ER today. No history of any traumatic injuries, no previous rib fractures or surgeries. No difficulty breathing or chest discomfort. She has focal tenderness along the left-sided rib cage under the breast bone. Does not take any blood thinners. Related Data Home Medications ?Medication ?Instructions ?Recorded ?Confirmed ?Last Taken ?Type levothyroxine 150 mcg tablet 150 mcg PO .COMPLEX 07/17/24 07/21/24 Unknown History (Levoxyl) lisinopril 20 1 tablet PO DAILY 07/17/24 07/21/24 Unknown History mg-hydrochlorothiazide 12.5 mg tablet rosuvastatin 20 mg tablet 20 mg PO DAILY 07/17/24 07/21/24 Unknown History ergocalciferol (vitamin D2) 1,250 1,250 mcg PO WEEKLY 07/21/24 07/21/24 Unknown History mcg (50,000 unit) capsule Allergies Allergy/AdvReac Type Severity Reaction Status Date / Time Sulfa (Sulfonamide Allergy Unknown Rash Verified 09/05/24 20:45 Antibiotics) Review of Systems Review of Systems: As reviewed above in HPI COUNT INCLUDES THE [facility] Past Medical History Medical History Disorder of thyroid HTN (hypertension) Surgical History Surgical History Hx of cholecystectomy H/O: hysterectomy Family History Family History Father Diabetes mellitus Hypertension Mother Cancer Grandparent Cancer Diabetes mellitus Heart disease Social History Social History Smoking status: Never smoker Alcohol intake: never Substance use type: does not use Do You Feel Safe in your Home?: Yes Lack of Transportation: No Lack of Food: Never True Current Housing: I Have Housing Concerned About Future Housing: No Difficulty Paying Gas/Electric Bills: No Difficulty Paying for Meds: No Currently Unemployed: No Education: High School Diploma/GED Difficulty w/ Childcare or Family Care: No Living arrangements: with family Gender identity (if verbalized by the patient): Female Agree to blood products: Yes Exam Narrative: GENERAL: [Well-appearing, well-nourished, and in no acute distress.] HEAD: [Normocephalic, atraumatic.] EYES: [PERRLA and EOMI.] ENT: Nares clear, no rhinorrhea or epistaxis. Mucous membranes moist. NECK: Supple. CHEST: [Clear to auscultation. No respiratory distress.] Reproducible tenderness to palpation along the inferior portion of the left 4th rib anterior laterally without any crepitus or deformity. HEART: [Regular rate and rhythm]. No murmur heard. [Normal peripheral pulses.] ABDOMEN: [Soft, nondistended], [nontender], [No rigidity or guarding] EXTREMITIES: Normal range of motion. [No edema.] SKIN: Warm, dry, no rash. NEURO: [No focal deficits]. Alert and oriented [x3.] PSYCH: [Normal mood and affect.] Course Vital Signs Vital signs: Vital Signs Temperature 36.9 C 09/05/24 20:20 Pulse Rate 97 09/05/24 20:20 Respiratory Rate 18 09/05/24 20:20 Blood Pressure 171/88 H 09/05/24 20:20 Pulse Oximetry 96 09/05/24 20:20 Temperature 36.9 C 09/05/24 20:20 Pulse Rate 97 09/05/24 20:20 Respiratory Rate 18 09/05/24 20:45 Blood Pressure 171/88 H 09/05/24 20:20 Pulse Oximetry 96 09/05/24 20:45 Medical Decision Making MDM Narrative Medical decision making narrative: 59-year-old female presenting after mechanical fall onto her left side ribs this happened 2 days ago. She reports some pain on the left rib and has focal reproducible tenderness along the 4th rib intercostal area without any step-offs or deformities. No crepitus. Clear breath sounds throughout, strong symmetric pulses and no other appreciable injuries. Patient has been taking some ibuprofen for pain control. Rib series x-rays were obtained to fully evaluate with suspected rib contusion versus rib fracture, low suspicion pneumothorax or intrathoracic process otherwise. X-rays were obtained without any definite rib fractures. No pneumothorax. Patient was given incentive spirometer and lidocaine patches and discharged home with rib contusion precautions after we discussed plan of care. Medical Records Medical records reviewed: Yes I reviewed the external patient's medical records. Vital Signs Vital Signs: Vital Signs Temperature 36.9 C 09/05/24 20:20 Pulse Rate 97 09/05/24 20:20 Respiratory Rate 18 09/05/24 20:20 Blood Pressure 171/88 H 09/05/24 20:20 Pulse Oximetry 96 09/05/24 20:20 Temperature 36.9 C 09/05/24 20:20 Pulse Rate 97 09/05/24 20:20 Respiratory Rate 18 09/05/24 20:45 Blood Pressure 171/88 H 09/05/24 20:20 Pulse Oximetry 96 09/05/24 20:45 Imaging Data Attestation: I personally reviewed and interpreted this imaging study as follows: My impression: Impressions Ribs X-Ray 09/05/24 21:54 IMPRESSION: No left rib fracture. (Note: subtle/nondisplaced rib fractures can be occult on plain films and if there is continued clinical suspicion for rib fracture, recommend follow up CT chest.) Discharge Plan Discharge Clinical Impression: Contusion of rib on left side Patient Disposition: Home Condition: Stable Instructions: Antibiotic Form, Rib Contusion (ED) Additional Instructions: Your x-ray shows no definite fractures and there is no signs of collapsed lung or intrathoracic problem. We will treat this as a rib contusion with lidocaine patches, anti-inflammatory control and incentive spirometer to help you maintain good deep breath. Return with any emergent concerns otherwise follow-up with regular doctor. Patient Language: Nigerian Prescriptions: New ketorolac 10 mg tablet 10 mg PO Q8H PRN (Reason: pain) 5 Days Qty: 20 0RF Rx Instructions: maximum total duration of 5 days from all oral, intranasal, or parenteral formulations lidocaine 5 % adhesive patch,medicated 1 patch topical DAILY Qty: 15 0RF Rx Instructions: leave on most painful area for up to 12 hrs No Action levothyroxine [Levoxyl] 150 mcg tablet 150 mcg PO .COMPLEX Rx Instructions: 150 mcg orally 6 days a week; 6 days a week; lisinopril-hydrochlorothiazide 20-12.5 mg tablet 1 tablet PO DAILY rosuvastatin 20 mg tablet 20 mg PO DAILY ergocalciferol (vitamin D2) 1,250 mcg (50,000 unit) capsule 1,250 mcg PO WEEKLY Follow-up/Referrals: Sarai Fernandez APRN [Primary Care Provider] - Time of Disposition: 22:08
[2024-09-05 22:22] VITALS: BP 143/91; PULSE 69; RESP 18; TEMP 36.7; O2SAT 96
[2024-09-05] MEDS: LIDOCAINE 5% PATCH 1 PATCH TRANSDERM (22:23)
== END 2024-09-05 22:45 | disposition home or self-care (01) ==
PROVIDERS: Emergency Provider Student in an Organized Health Care Education/Training Program; PCP Nurse Practitioner Adult Health
DX: S20.212A Contusion of left front wall of thorax, initial encounter (principal); I10 Essential (primary) hypertension; E07.9 Disorder of thyroid, unspecified; Z90.49 Acquired absence of other specified parts of digestive tract; Z90.710 Acquired absence of both cervix and uterus; W01.0XXA Fall on same level from slipping, tripping and stumbling without subsequent striking against object, initial encounter
CPT/HCPCS: 71100; 99283; A9270

== ENCOUNTER 2025-01-26 10:25 | Outpatient (CLI) | payer OTHER, SELFPAY ==
--- OUTSIDE RECORDS SUMMARY | 2025-01-26 11:32 | XMS_ITS | Clinical Summary ---
Author Organization [facility] Address [address] [place] [address] Phone Care Team Providers Care Chocolate Temperer Name Role Phone Unavailable Primary Care Provider Unavailabl e Social History Tobacco Use Types Packs/Day Years Used Date Smoking Tobacco: Never Assessed Comments Unknown Sex and Gender Information Value Date Recorded Sex Assigned at Not on file Legal Sex Unknown 05/15/2019 12:14 PM [employer] Gender Identity Not on file Sexual Orientation [...] (1 of 2) 2014 INFLUENZA VACCINE (#1) 2024 RSV VACCINE (60+ or ) (1 - 1-dose 75+ series) 08/28/2039 HEPATITIS B VACCINES Aged Out No long er eligible based on patient's age to complete this topic
--- OUTSIDE RECORDS SUMMARY | 2025-01-26 11:33 | XMS_ITS | Clinical Summary ---
Author Organization [facility] Address [address] [place] [address] Care Team Providers Care Freelance Web Designer Name Role Phone Sarai Fernandez NP Primary Care Provider [phone] Allergies Active Allergy Reactions Criticality Noted Date Comments Sulfa (Sulfonamide Antibiotics) Rash,Fever Medium 10/25 Medications lisinopril-hydroCH LOROthiazide (ZESTORETIC) 20-12.5 mg per tablet Take 1 tablet by mouth daily 09/06/19 21 Active rosuvastatin (CRESTOR) 20 mg tablet Take 1 tablet (20 mg total) by mouth daily 90 tablet 2 08/25/19 23 Active levothyroxine (SYNTHROID) 150 mcg tabletIndications: Postablative hypothyroidism Take 1 tablet (150 mcg total) by mouth daily 90 tablet 3 11/16/19 24 Active ergocalciferol (VITAMIN D) 50,000 unit capsuleIndications :Postablative hypothyroidism TAKE 1 CAPSULE BY MOUTH EVERY 7 DAYS 12 capsule 12/30/19 25 Active ergocalciferol (VITAMIN D) 50,000 unit capsuleIndications :Postablative hypothyroidism Take 1 capsule (50,000 Units total) by mouth every 7 days 12 capsule 3 11/16/19 24 025 Discontinued Active Problems Problem Noted Date Diagnosed Date Mixed hyperlipidemia 02/06/2023 Assessment & Plan (06/19/2024 10:29 AM CDT): Chronic problem. Currently w/o PCP. Not taking her Rosuvastatin 20mg daily. Thinks she may take weekly. Reviewed risk of stroke w/HLD & uncontrolled HTN. Will update lipid today. Does not mychart. Verified phone #/address to contact re: results. Assessment & Plan (02/06/2023 11:06 AM COMPETENCY EVALUATED NURSE AIDE): Chronic problem. Currently w/o PCP. Rosuvastatin 20mg [...] GFR Assessment & Plan (01/31/2022 1:09 PM COMPETENCY EVALUATED NURSE AIDE): Risks of uncontrolled HTN explained Low salt [...] ergocalciferol Assessment & Plan (02/06/2023 11:05 AM COMPETENCY EVALUATED NURSE AIDE): Chronic problem. Currently taking ergocalciferol 50,000IU weekly. Has missed a few doses. Will update Vitamin D today. Does not mychart. Verified phone #/address to contact re: results. Assessment & Plan (08/15/2022 11:00 AM CDT): Check 25 OH vit D Adjust dose of Ergocalciferol accordingly Assessment & Plan (01/31/2022 1:08 PM COMPETENCY EVALUATED NURSE AIDE): Update vit D levels Restart Ergocalciferol, as indicated Assessment & Plan (10/28/2020 2:22 PM CDT): Check 25 OH vit D Adjust dose of Ergocalciferol accordingly Assessment & Plan (11/19/2018 4:04 PM CDT): I encouraged the patient to take her vitamin-D compliantly Assessment & Plan (06/06/2018 9:59 AM CDT): Check vit D DEXA requested Assessment & Plan (05/31/2017 10:38 AM COMPETENCY EVALUATED NURSE AIDE): Check 25 OH vit D Adjust dose [...] A1c Assessment & Plan (02/06/2023 11:06 AM COMPETENCY EVALUATED NURSE AIDE): Chronic problem. A1c WNL today. Discussed diet/activity. Needs to start exercise regimen outside of housework. Reviewed diet: feels that her diet worsens around the holidays. Assessment & Plan (08/15/2022 11:00 AM CDT): Diet and exercise Update lipid profile Assessment & Plan (01/31/2022 1:08 PM COMPETENCY EVALUATED NURSE AIDE): hba1c updated Importance of diet and exercise were reemphasized Assessment & Plan (08/02/2021 12:56 PM CDT): Patient advised on working on diet and exercise Low-calorie diet Check HbA1c Assessment & Plan (10/28/2020 2:22 PM CDT): Diet and exercise Check hba1c Check lipid profile Assessment & Plan (06/06/2018 9:59 AM CDT): Diet and exercise discussed Check hba1c Assessment & Plan (05/31/2017 10:39 AM COMPETENCY EVALUATED NURSE AIDE): Check hba1c Diet and exercise Consider starting [...] indicated Assessment & Plan (02/06/2023 11:04 AM COMPETENCY EVALUATED NURSE AIDE): Chronic problem. Has not had labs repeated [...] emphasized Assessment & Plan (01/31/2022 1:04 PM COMPETENCY EVALUATED NURSE AIDE): Thyroid function tests, including TSH and free [...] m Assessment & Plan (05/31/2017 10:38 AM COMPETENCY EVALUATED NURSE AIDE): Check TSH, free T4 Adjust dose of Levothyroxine accordingly . Instructions to patient on taking medication properly Consider taking the med 2 x wk ( 7 tabs one day and 7 tabs another day ) Will call with recommendations Skin benign neoplasm 08/07/2012 Keloid scar 08/07/2012 Surgical History Surgery Date Site/Laterality Comments HYSTERECTOMY Hysterectomy CHOLECYSTECTOMY Cholecystectomy Medical History Medical History Date Comments Hx Other Medical NEGRETE 2005 Disorder of thyroid Thyroid dise ase Family [...] on file Legal Sex Female 12:32 AM COMPETENCY EVALUATED NURSE AIDE Gender Identity Not on file Sexual Orientation [...] 01/31/2022, 06/05/2019, Additional history exists Influenza Vaccine (#1) 2024 DTaP/Tdap/Td Vaccine (3 - Td or Tdap) 07/02/2025 07/03/2015, 05/25/2015 Pneumococcal vaccine <65 Aged Out No longer eligible based on patient's age to complete this topic Insurance [facility] Care Teams Freelance Web Designer Relationship Specialty Start Date End Date Sarai Fernandez NP PCP - General Nurse Practitioner 11/19/18
[2025-01-26 19:14] LABS: Hematocrit 43.3 % (37.0-47.0); Hemoglobin 13.4 g/dL (12.0-15.0); Mean Corpuscular HGB Conc 30.9 g/dl (32-36); Mean Corpuscular Hemoglobin 26.7 pg (26-34); Mean Corpuscular Volume 86.4 fl (80-100); Platelet Count Result 353 k/mm3 (150-375); Red Blood Count 5.01 M/mm3 (4.2-5.4); White Blood Count 7.4 K/mm3 (4.5-10.0)
[2025-01-26 19:24] LABS: Alanine Aminotransferase 33 U/L (6-35); Albumin Level 4.5 g/dL (3.5-5.1); Alkaline Phosphatase 88 U/L (38-126); Anion Gap 7 mmol/L (4-12); Aspartate Amino Transferase 78 U/L (14-36); Bilirubin,Total 0.6 mg/dL (0.2-1.3); Blood Urea Nitrogen 20 mg/dL (7-17); Calcium 9.9 mg/dL (8.4-10.2); Carbon Dioxide 29 mmol/L (22-30); Chloride 101 mmol/L (98-107); Cholesterol 146 mg/dL (0-200); Estimated Glomerular Filt Rate > 60; Glucose 83 mg/dL (65-110); HDL Direct 60 mg/dL; Potassium 4.2 mmol/L (3.4-5.0); Sodium 137 mmol/L (137-145); Total Protein 7.7 g/dL (6.3-8.2); Triglycerides 59 mg/dL (<150)
== END 2025-01-26 10:26 | disposition home or self-care (01) ==
PROVIDERS: PCP Nurse Practitioner Adult Health; Visit Provider Nurse Practitioner Adult Health
DX: I10 Essential (primary) hypertension (principal); E55.9 Vitamin D deficiency, unspecified
CPT/HCPCS: 36415; 80053; 80061; 82306; 85027